=== PATIENT | female | born 1985 | race Caucasian/White ===

== ENCOUNTER 2019-09-11 15:43 | Outpatient (CLI) | payer OTHER ==
--- NOTE | 2019-09-12 00:46 | MRI Report ---
Reason: LT HIP/LOW BACK PAIN Procedure Date: 09/11/2019 Accession Number: [id number] / [id number] Procedure: MRI - Lumbar Spine W/O CPT Code: Final Report FULL RESULT: EXAM: MRI LUMBAR SPINE WITHOUT CONTRAST EXAM DATE: 09/11/2019 04:48 PM. CLINICAL HISTORY: LT HIP/LOW BACK PAIN. COMPARISON: None. TECHNIQUE: Multiplanar, multisequence T1-weighted and fluid-sensitive sequences of the lumbar spine from T12 to S1 without contrast. Other: None. FINDINGS: Spinal Canal: The conus terminates at . The conus medullaris and cauda equina are unremarkable. Alignment: No scoliosis or spondylolisthesis. Bone Marrow: Five [id number]-kvu-[id number] lumbar vertebral bodies are assumed. No gross fractures or bone lesions. No bone marrow replacement. Disk Levels/Facets: T12-L1: Unremarkable. L1-L2: Unremarkable. L2-L3: Unremarkable. L3-L4: Unremarkable. L4-L5: Minimal disk height loss and dessication are noted. No focal disk pathology is visualized. Mild facet/ligamentum flavum hypertrophy is visualized. There is no significant central canal or neuroforaminal stenosis.. L5-S1: Mild disk height loss and dessication are noted. No focal disk pathology is visualized. Minimal diffuse disk bulge is noted. The facet joints are unremarkable. There is no significant central canal or neuroforaminal stenosis. Musculature: Normal. No edema or fatty atrophy. Other: The partially visualized retroperitoneum is unremarkable. IMPRESSION: 1. No evidence of acute pathology in the lumbar spine. 2. Mild lower lumbar degenerative change, as detailed above. Comment: The following findings are so common in adults without low back pain that while we report their presence, they must be interpreted with caution and in the context of the clinical situation. (Reference Guillek et al, Spine 2001) Prevalence of findings in patients without low back pain: Disk degeneration (any evidence): 92% Disk desiccation/T2 signal loss: 83% Disk height loss: 56% Disk bulge: 64% Disk protrusion: 32% Annular tear/high intensity zone: 38% RADIA
--- NOTE | 2019-09-12 10:59 | MRI Report ---
Reason: LT HIP/LOW BACK PAIN Procedure Date: 09/11/2019 Accession Number: [id number] / [id number] Procedure: MRI - Hip LT W/O CPT Code: Final Report FULL RESULT: EXAM: LEFT HIP MRI WITHOUT CONTRAST EXAM DATE: 09/11/2019 04:43 PM. CLINICAL HISTORY: Left hip/low back pain. COMPARISON: None. TECHNIQUE: Multiplanar, multisequence T1-weighted and fluid-sensitive, small yqthc-pz-pvvp sequences of the hip and large dgrij-pz-jahk sequences of the pelvis without contrast. Other: None. FINDINGS: Bones: No fractures or subluxations. No marrow edema or bone lesions. Left Hip: No acetabular retroversion. Femoral head/neck offset is within normal limits. No effusion or loose bodies. The articular cartilage is intact. Full thickness tear of the anterior aspect of the acetabular labrum. Series 601 image 18, series 901 image 10 (3 o'clock position). No para labral cyst. The ligamentum teres is intact. Alpha angle is 61.0 degrees. There is a "cam lobe" contour at the anterior femoral head neck junction. Lateral center edge angle is 34.5 degrees. Other Joints: The visualized lumbar spine, sacroiliac joints, symphysis pubis, and contralateral hip are unremarkable. Musculature: No edema or fatty atrophy. The gluteus medius and minimus tendons are normal. The visualized hamstring tendons are normal. The ischiofemoral space is normal. Pelvic Cavity: The visualized viscera are unremarkable. No lymphadenopathy. No free fluid in the pelvis. Low signal proximal vaginal ring. Series 401 image 14 and 15. Nonpathologic. Other: The visualized sciatic nerves are unremarkable. No bursitis. The subcutaneous tissues are unremarkable. IMPRESSION: 1. Full-thickness tear anterior aspect acetabular labrum (3 o'clock position). No displaced fragment. No para labral cyst. 2. Mildly elevated alpha angle. There is a "cam lobe contour" at the anterior femoral head neck junction. RADIA
== END 2019-09-11 15:44 | disposition home or self-care (01) ==
LOC: DI 15:43
PROVIDERS: ATTEND Family Medicine
DX: M51.36 Other intervertebral disc degeneration, lumbar region (principal); M51.37 Other intervertebral disc degeneration, lumbosacral region; M47.816 Spondylosis without myelopathy or radiculopathy, lumbar region; S73.192A Other sprain of left hip, initial encounter
CPT/HCPCS: 72148